=== PATIENT | male | born 1965 | race Caucasian/White ===

== ENCOUNTER 2017-12-24 09:16 | Emergency (ER) | END 2017-12-24 12:25 | disposition home or self-care (01) ==

== ENCOUNTER 2018-02-08 13:11 | Day surgery (SDC) | END 2018-02-08 19:24 | disposition home or self-care (01) ==

== ENCOUNTER 2019-04-17 09:14 | Emergency (ER) | payer OTHER ==
[~2019-04-17] VITALS: Wt 75.0 kg
[~2019-04-17 09:14] MED LIST: ATOR40TA68 PO; CIPR500T4 PO; DOCU-144 PO; IBUP800T48 PO; METR500T PO
[2019-04-17] MEDS ORDERED: KETOROLAC 15 MG INJ IV STA (11:50)
[2019-04-17] MEDS ORDERED: SOD CHLORIDE 0.9% 1,000 ML IV STA (11:50)
[2019-04-17] MEDS ORDERED: metroNIDAZOLE 500 MG TAB PO ONE (13:00)
[2019-04-17] MEDS ORDERED: CIPROFLOXACIN 500 MG TAB PO ONE (13:00)
[2019-04-17 13:29] VITALS: BP 107/66; PULSE 51; RESP 15
== END 2019-04-17 13:31 | disposition home or self-care (01) ==
LOC: E/R 09:14
DX: K57.32 Diverticulitis of large intestine without perforation or abscess without bleeding (principal); F17.210 Nicotine dependence, cigarettes, uncomplicated
CPT/HCPCS: 36415; 74176; 80053; 81001; 83690; 85025; 96374; J1885; J7030; Z7502; Z7610